=== PATIENT | female | born 1990 | race Caucasian/White ===

== ENCOUNTER → 2021-09-07 | Outpatient (CLI) | payer OTHER ==
--- NOTE | 2021-09-07 15:28 | US ---
EXAMINATION TYPE: Transabdominal DATE OF EXAM: 09/07/2021 3:10 PM COMPARISON: NONE CLINICAL HISTORY: Z36.89 CONFIRM [id number] AGE. EXAM PERFORMED: Transabdominal (TA) EXAM MEASUREMENTS: GESTATIONAL AGE / DATING Physician Established: (11 weeks/5 days) EDC: 03/24/2022 Dates by LMP: (11 weeks/5 days) EDC: 03/24/2022 Dates by First Scan: This is 1st scan Dates by Current Scan for: (11 weeks/4 days) EDC: 03/25/2022 MATERNAL ANATOMY Uterus: 12.9 x 7.6 x 8.1cm Right Ovary: 3.3 x 1.8 x 2.4cm, Left Ovary: 4.0 x 2.0 x 1.9cm Post CDS / Adnexa: right adnexa: 5.1 x 4.3 x 5.0cm cystic area adjacent to right ovary, possible ovar regulo cyst Presence of free fluid: no Presence of corpus luteal cyst: not seen Presence of subchorionic bleed: no GESTATION / SURVEY CRL: 4.8cm (11 weeks/4 days) Yolk Sac (normal less than 6mm): not seen Heart Rate: 165 bpm Rhythm: Normal IUP: Viable IUP Date of LMP: 06/17/2021 IMPRESSION: Single viable intrauterine . Right adnexal cyst.
== END | disposition home or self-care (01) ==
LOC: RADUSWWP 14:48
PROVIDERS: ATTEND Obstetrics & Gynecology
DX: O34.81 Maternal care for other abnormalities of pelvic organs, first trimester (principal); Z3A.11 11 weeks gestation of pregnancy
CPT/HCPCS: 76801

== ENCOUNTER → 2021-11-01 | Outpatient (CLI) | payer OTHER ==
--- NOTE | 2021-11-01 16:23 | US ---
EXAMINATION TYPE: US OB anatomy transabd DATE OF EXAM: 11/01/2021 COMPARISON: US September 07, 2021 HISTORY: O36.62X0 LARGE FOR DATES Large for dates. Hx 1 miscarriage, 1 . . No pain or bl eeding. TECHNIQUE: Transabdominal (TA) EXAM MEASUREMENTS: GESTATIONAL AGE / DATING Physician Established: (19 weeks/4 days) EDC: 03/24/2022 Dates by LMP: (19 weeks/4 days) EDC: 03/24/2022 Dates by First Scan: (19 weeks/3 days) EDC: 03/25/2022 Dates by Current Scan for: (19 weeks/4 days) EDC: 03/24/2022 SURVEY IUP: Single PLACENTA: Posterior-Fundal PREVIA: No previa MILES: 16.4 cm Normal CERVICAL LENGTH (transabdominal: norm > 3.0cm): 4.6 cm BIOMETRY PRESENTATION: Variable LIE: Transverse lie with head maternal Right BPD: 4.41 cm 19 weeks / 3 days HC: 16.91 cm 19 weeks / 4 days AC: 14.06 cm 19 weeks / 4 days FL: 3.11 cm 19 weeks / 5 days ESTIMATED WEIGHT IN GRAMS: 298 grams ESTIMATED WEIGHT IN LBS/OZ: 0 lbs. 11 oz. WEIGHT PERCENTAGE BASED ON ESTABLISHED DATE: 43 % HC/AC: 1.20 Normal FL/AC: 22% HEART RATE: 134 bpm RHYTHM: Normal ANATOMY SEEN (within normal limits): * Lateral Vent (< 1 cm) 0.72 cm * Cisterna Magna (< 1.1 cm) 0.41 * Nuchal Fold (< 0.6 cm) 0.37 cm. * Cerebellum (varies with age) 1.90 cm Choroid Plexus (bilateral) Midline Falx Cavus Septi Pellucidi Four Chamber Heart Outflow tracts: LVOT/RVOT Stomach Situs Nose / Lips Diaphragm Kidneys (bilateral) Bladder Cord Insert Three Vessel Cord Longitudinal Spine Transverse Spine Arms (bilateral) Legs (bilateral) Female gender imaged. ANATOMY SEEN (does not appear within normal limits): Appearance of cystic area within the right choroid: 0.5 cm. Incidental finding as seen on last ultrasound: Anechoic area seen in the right adnexa that appears to be adjacent to the right ovary: 5.2 x 5.1 x 3.8 cm. Right ovary measures: 2.4 x 3.0 x 1.3 cm. Single live intrauterine gestation is redemonstrated. No placenta previa. Measured amniotic fluid ind ex within normal limits. biometry measurements congruent and within normal limits. A variable p resentation to fetus currently seen. No cervical thinning. Detailed anatomical survey shows no suspic ious abnormality during real-time scanning. Still images saved show no obvious abnormality. Persisten t 5.0 cm right pelvic paraovarian thin-walled cyst noted unchanged in appearance from prior ultrasoun d IMPRESSION: As above.
== END | disposition home or self-care (01) ==
LOC: RADUSWWP 12:45
PROVIDERS: ATTEND Obstetrics & Gynecology
DX: O36.62X0 Maternal care for excessive fetal growth, second trimester, not applicable or unspecified (principal); Z3A.00 Weeks of gestation of pregnancy not specified
CPT/HCPCS: 76811

== ENCOUNTER → 2021-12-03 | Outpatient (CLI) | payer OTHER ==
--- NOTE | 2021-12-03 16:58 | US ---
EXAMINATION TYPE: US OB >= 14 wk fetus DATE OF EXAM: 12/03/2021 COMPARISON: 11/01/2021 CLINICAL HISTORY: 31-year-old female Z34.82 ENCOUNTER FOR SUPRVSN OF NORMAL PREGN G93.0 TECHNIQUE: Multiple transabdominal sonographic images of the pelvis are obtained. FINDINGS: GESTATIONAL AGE / DATING Physician Established: (24 weeks/1 days) EDC: 03/24/2022 Dates by LMP: (24 weeks/1 days) EDC: 03/24/2022 Dates by First Scan: (24 weeks/0 days) EDC: 03/25/2022 Dates by Current Scan: (24 weeks/1 days) (normal growth compared to 11/01/2021) EDC: 03/24/2022 SURVEY IUP: Single PLACENTA: Posterior PREVIA: No Previa MILES: 12.7 cm Normal CERVICAL LENGTH (transabdominal: norm > 3.0cm): 4.4 cm BIOMETRY PRESENTATION: Vertex LIE: Longitudinal BPD: 6.0 cm 24 weeks / 4 days HC: 22.2 cm 24 weeks / 2 days AC: 18.0 cm 23 weeks / 0 days FL: 4.4 cm 24 weeks / 4 days ESTIMATED WEIGHT IN GRAMS: 618 grams ESTIMATED WEIGHT IN LBS/OZ: 1 lbs. 6 oz. WEIGHT PERCENTAGE BASED ON ESTABLISHED DATES: 22% (versus 43%, previously) HC/AC: 1.23 Abnormal FL/AC: 24% Normal HEART RATE: 138 bpm RHYTHM: Normal Choroid plexus cyst seen on previous ultrasound not seen on today's exam 4.8 x 4.0 x 4.6cm cystic area seen right adnexa - seen on previous exam, measured at 5.2 x 5.1 x 3. 8 cm, previously. This seems be adjacent to, abutting the right ovary. IMPRESSION: 1. Single live intrauterine with established gestational age of 24 weeks 1 day. Current ult rasound biometry is exactly concordant. EFW 22nd percentile for weight. 2. Redemonstration of a cystic right adnexal lesion. The 4.8 cm simple cyst appears to abut the right ovary, possible paraovarian cyst.
== END | disposition home or self-care (01) ==
LOC: RADUSWWP 12:13
PROVIDERS: ATTEND Obstetrics & Gynecology
DX: Z34.82 Encounter for supervision of other normal pregnancy, second trimester (principal); Z3A.24 24 weeks gestation of pregnancy
CPT/HCPCS: 76805

== ENCOUNTER 2021-12-12 14:38 | Outpatient (CLI) | payer OTHER ==
[2021-12-12 15:44] LABS: Amorphous Sediment,Urine Occasional /hpf; Appearance,Urine Clear (Clear); Bacteria,Urine Many /hpf; Bilirubin,Urine Negative (Negative); Blood,Urine Negative (Negative); Color,Urine Colorless; Glucose,Urine (UA) Negative (Negative); Ketones,Urine Negative (Negative); Leukocyte Esterase,Urine Moderate (Negative); Mucus,Urine Rare /hpf; Nitrite,Urine Negative (Negative); PH, Urine 7.5 (5.0-8.0); Protein,Urine Negative (Negative); RBC,Urine 2 /hpf (0-5); Specific Gravity,Urine 1.006 (1.001-1.035); Squamous Epithelial Cell,Urine 2 /hpf (0-4); Urobilinogen,Urine <2.0 mg/dL (<2.0); WBC,Urine 25 /hpf (0-5)
[2021-12-12] MEDS ORDERED: CEPHALEXIN 500 MG CAP PO STA (15:53)
[2021-12-12 16:34] VITALS: BP 107/65; PULSE 80; RESP 16; TEMP 97.4
--- NOTE | 2021-12-20 11:26 | P.MSEPDOC ---
Presenting Problems - Arrival Data Date of Arrival on Unit: 12/12/21 Time of Arrival on Unit: 14:38 Mode of Transport: Wheelchair - Complaint OB-Reason for Admission/Chief Complaint: Pain Comment: lower back and abd pain, rates 7 Medical History - Information : 3 Para: 0 Term: 0 : 0 Abortions: Spontaneous or Elective: 2 Number of Living Children: 0 - Gestational Age Gestational Age by NAZARIO (wks/days): 25 Weeks and 3 Days Review of Systems - Review of Systems Constitutional: No problems Breast: No problems ENT: No problems Cardiovascular: No problems Respiratory: No problems Gastrointestinal: No problems Genitourinary: No problems Musculoskeletal: No problems Neurological: No problems Skin: No problems Vital Signs - Temperature Temperature: 97.4 F Temperature Source: Temporal Artery Scan - Pulse Right Sitting Pulse Rate: 80 Pulse Assessment Method: Automatic Cuff - Respirations Respiratory Rate: 16 Oxygen Delivery Method: Room Air - Blood Pressure Right Arm Blood Pressure: 107/65 Blood Pressure Mean: 79 Blood Pressure Source: Automatic Cuff Medical Screen Scoring - Assessment - Baby A Baseline FHR: 145 Heart Rate - NICHD Category: Category I (Normal) Physician Notification - Physician Notified Physician Notified Date: 12/12/21 Physician Notified Time: 15:57 Physician: Ángel Mooney New Order Received: Yes (d/c home) Maternal Triage Index - Non-Urgent/Priority 4 Non-Urgent Priority 4: Yes Criteria Met for Priority 4: reassuring fht, no contractions, uti Disposition - Disposition OB Disposition: Discharge to home Discharge Date: 12/12/21 Discharge Time: 16:12 I agree with the RN Medical Screening Exam: Yes Case reviewed; plan agreed upon as documented in EMR&OBIX.: Yes Diagnosis: LOW BACK PAIN, UNSPECIFIED
== END 2021-12-12 16:12 | disposition home or self-care (01) ==
LOC: FBPOP 14:38
PROVIDERS: ATTEND Obstetrics & Gynecology
DX: O99.891 Other specified diseases and conditions complicating pregnancy (principal); M54.50 Low back pain, unspecified; Z3A.25 25 weeks gestation of pregnancy
CPT/HCPCS: 59025; 81001; 87086; 99213

== ENCOUNTER 2022-02-14 20:18 | Outpatient (CLI) | payer OTHER ==
[2022-02-14 21:43] VITALS: BP 112/74; PULSE 93; RESP 16; TEMP 98.4
--- NOTE | 2022-02-15 06:52 | P.MSEPDOC ---
Presenting Problems - Arrival Data Date of Arrival on Unit: 02/14/22 Time of Arrival on Unit: 20:18 Mode of Transport: Ambulatory - Complaint OB-Reason for Admission/Chief Complaint: Decreased Movement Medical History - Information : 3 Para: 0 Term: 0 : 0 Abortions: Spontaneous or Elective: 2 Number of Living Children: 0 - Gestational Age Gestational Age by NAZARIO (wks/days): 34 Weeks and 4 Days Review of Systems - Review of Systems Constitutional: No problems Breast: No problems ENT: No problems Cardiovascular: No problems Respiratory: No problems Gastrointestinal: No problems Genitourinary: No problems Musculoskeletal: No problems Neurological: No problems Skin: No problems Vital Signs - Temperature Temperature: 98.4 F Temperature Source: Temporal Artery Scan - Pulse Brachial Pulse Rate: 93 Pulse Assessment Method: Automatic Cuff - Respirations Respiratory Rate: 16 Oxygen Delivery Method: Room Air - Blood Pressure Right Arm Blood Pressure: 112/74 Blood Pressure Mean: 86 Blood Pressure Source: Automatic Cuff Medical Screen Scoring - Uterine Contractions Frequency From (mins): 0 - Assessment - Baby A Baseline FHR: 125 Heart Rate - NICHD Category: Category I (Normal) NST: Reactive Physician Notification - Physician Notified Physician Notified Date: 02/14/22 Physician Notified Time: 21:00 Physician: Lisa Desai Order Received: Yes Maternal Triage Index - Prompt/Priority 3 Prompt Priority 3: Yes Criteria Met for Priority 3: 34 4/7 Decreased movment, fhts Category 1, movement felt Disposition - Disposition OB Disposition: LDRP Suite, Discharge to home, Written follow up instructions reviewed Discharge Date: 02/14/22 Discharge Time: 21:17 I agree with the RN Medical Screening Exam: Yes Physician's MSE Comment: Patient instructed to come to the office 2 times a week for NSTs due to decreased movement. Case reviewed; plan agreed upon as documented in EMR&OBIX.: Yes Diagnosis: DECREASED MOVEMENTS, THIRD TRIMESTER, UNSP
== END 2022-02-14 21:17 ==
LOC: FBPOP 20:18
PROVIDERS: ATTEND Obstetrics & Gynecology
DX: O26.893 Other specified pregnancy related conditions, third trimester (principal); Z3A.34 34 weeks gestation of pregnancy; O36.8130 Decreased fetal movements, third trimester, not applicable or unspecified
CPT/HCPCS: 59025; 99213

== ENCOUNTER 2022-02-17 08:31 | Outpatient (CLI) | payer OTHER ==
[2022-02-17] MEDS ORDERED: LACTATED RINGERS 1,000 ML IV ONE (09:15)
[2022-02-17 09:43] LABS: Basophils % (A) 0 %; Eosinophils # (A) 0.1 k/uL (0-0.7); Eosinophils % (A) 1 %; HCT 35.1 % (34.0-46.0); HGB 11.7 gm/dL (11.4-16.0); Hypochromasia Slight; Lymphocytes # (A) 1.4 k/uL (1.0-4.8); Lymphocytes % (A) 14 %; MCH 29.8 pg (25.0-35.0); MCHC 33.5 g/dL (31.0-37.0); MCV 88.9 fL (80.0-100.0); Mean Platelet Volume 10.7; Monocytes # (A) 0.2 k/uL (0-1.0); Monocytes % (A) 2 %; Neutrophils # (A) 8.4 k/uL (1.3-7.7); Neutrophils % (A) 82 %; Platelet Count 216 k/uL (150-450); RBC 3.94 m/uL (3.80-5.40); RDW 13.5 % (11.5-15.5); WBC 10.3 k/uL (3.8-10.6)
[2022-02-17 10:27] LABS: Appearance,Urine Cloudy (Clear); Bacteria,Urine Rare /hpf; Bilirubin,Urine Negative (Negative); Blood,Urine Negative (Negative); Color,Urine Yellow; Glucose,Urine (UA) Negative (Negative); Ketones,Urine Negative (Negative); Leukocyte Esterase,Urine Trace (Negative); Mucus,Urine Many /hpf; Nitrite,Urine Negative (Negative); Protein,Urine 1+ (Negative); RBC,Urine <1 /hpf (0-5); Specific Gravity,Urine 1.027 (1.001-1.035); Squamous Epithelial Cell,Urine 2 /hpf (0-4); WBC,Urine 2 /hpf (0-5)
[2022-02-17 11:13] LABS: ALT 11 U/L (4-34); AST 20 U/L (14-36); African American GFR (CKD) >90 (>60 ml/min/1.73 sqM); Albumin 3.2 g/dL (3.5-5.0); Alkaline Phosphatase 111 U/L (38-126); Anion Gap 6 mmol/L; Blood Urea Nitrogen 9 mg/dL (7-17); Calcium 8.6 mg/dL (8.4-10.2); Carbon Dioxide 20 mmol/L (22-30); Chloride 107 mmol/L (98-107); Glucose 91 mg/dL (74-99); Non-African American GFR(CKD) >90 (>60 ml/min/1.73 sqM); Potassium 4.4 mmol/L (3.5-5.1); Sodium 133 mmol/L (137-145); Total Bilirubin 0.2 mg/dL (0.2-1.3); Total Protein 6.1 g/dL (6.3-8.2)
[2022-02-17 11:52] VITALS: BP 117/63; PULSE 82; RESP 18; TEMP 98
--- NOTE | 2022-02-18 07:46 | P.MSEPDOC ---
Presenting Problems - Arrival Data Date of Arrival on Unit: 02/17/22 Time of Arrival on Unit: 08:25 Mode of Transport: Ambulatory - Complaint OB-Reason for Admission/Chief Complaint: Acute Nausea/Vomiting, Pain Comment: LRQ pain, active vomiting Medical History - Information : 3 Para: 0 Number of Living Children: 0 - Gestational Age Gestational Age by NAZARIO (wks/days): 35 Weeks and 0 Days Review of Systems - Review of Systems Constitutional: No problems Breast: No problems ENT: No problems Cardiovascular: No problems Respiratory: No problems Gastrointestinal: No problems Genitourinary: No problems Musculoskeletal: No problems Neurological: No problems Skin: No problems Vital Signs - Temperature Temperature: 98.0 F Temperature Source: Axillary - Pulse Right Sitting Brachial Pulse Rate: 82 Pulse Assessment Method: Automatic Cuff - Respirations Respiratory Rate: 18 Oxygen Delivery Method: Room Air O2 Sat by Pulse Oximetry: 100 - Blood Pressure Right Arm Sitting Blood Pressure: 117/63 Blood Pressure Mean: 81 Blood Pressure Source: Automatic Cuff Medical Screen Scoring - Cervical Exam Dilation (cm): 0 Effacement (%): 0 Station: -2 Membranes: Intact - Uterine Contractions Frequency From (mins): 0 Frequency To (mins): 0 Duration From (seconds): 0 Duration To (seconds): 0 Intensity: Absent Resting: Soft to palpation - Assessment - Baby A Baseline FHR: 135 Heart Rate - NICHD Category: Category I (Normal) NST: Reactive Physician Notification - Physician Notified Physician Notified Date: 02/17/22 Physician Notified Time: 11:25 Physician: Ángel Mooney New Order Received: Yes - Notification Comment Comment: discharge Maternal Triage Index - Maternal Triage Index Presenting for scheduled procedure w/no complaint: No - Stat/Priority 1 Stat Priority 1: No - Urgent/Priority 2 Urgent Priority 2: No - Prompt/Priority 3 Prompt Priority 3: No - Non-Urgent/Priority 4 Non-Urgent Priority 4: Yes Criteria Met for Priority 4: vomiting, pain Disposition - Disposition OB Disposition: Discharge to home Discharge Date: 02/17/22 Discharge Time: 11:35 I agree with the RN Medical Screening Exam: Yes Case reviewed; plan agreed upon as documented in EMR&OBIX.: Yes Diagnosis: VOMITING OF , UNSPECIFIED (Patient presents to labor and delivery with complaints of chronic right lower quadrant pain. Her review of for history per Dr. Walter shows long-standing pelvic pain and right- sided discomfort. She does have a history of a right ovarian cyst and kidney stones. Patient presented because her pain was persistent and now accompanied with some nausea and vomiting. I did a complete evaluation including CBC which was normal. Patient is given IV hydration the pain markedly improved. Patient's discharge home follow up with her ultrasound tomorrow. Follow-up with Dr. Walter this week. Patient is given indications to return.)
== END 2022-02-17 11:35 | disposition home or self-care (01) ==
LOC: FBPOP 08:31
PROVIDERS: ATTEND Obstetrics & Gynecology
DX: O26.893 Other specified pregnancy related conditions, third trimester (principal); R11.2 Nausea with vomiting, unspecified; Z3A.35 35 weeks gestation of pregnancy
CPT/HCPCS: 59025; 80053; 81001; 85025; 96360; 96361; 99214

== ENCOUNTER 2022-02-18 15:36 | Outpatient (CLI) | payer OTHER ==
[2022-02-18] MEDS ORDERED: LACTATED RINGERS 1,000 ML IV SCH (16:00)
[2022-02-18 17:34] VITALS: BP 122/74; PULSE 94; RESP 16; TEMP 97.9
--- NOTE | 2022-03-12 20:58 | P.MSEPDOC ---
Presenting Problems - Arrival Data Date of Arrival on Unit: 02/18/22 Time of Arrival on Unit: 15:36 Mode of Transport: Ambulatory - Complaint OB-Reason for Admission/Chief Complaint: Acute Nausea/Vomiting, Pain Comment: Pt states vomiting since Friday morning, not constant, no nausea, just will vomit after eating/drinking. Pt states R ovarian cyst causing pain. Pt was in for scheduled ultrasound and came to triage to receive fluids. Had IV fluids and UA yesterday. Medical History - Information : 2 Para: 0 Abortions: Spontaneous or Elective: 1 - Gestational Age Gestational Age by NAZARIO (wks/days): 35 Weeks and 1 Days Review of Systems - Review of Systems Constitutional: No problems Breast: No problems ENT: No problems Cardiovascular: No problems Respiratory: No problems Gastrointestinal: No problems Genitourinary: No problems Musculoskeletal: No problems Neurological: No problems Skin: No problems Vital Signs - Temperature Temperature: 97.9 F Temperature Source: Temporal Artery Scan - Pulse Right Sitting Brachial Pulse Rate: 94 Pulse Assessment Method: Automatic Cuff - Respirations Respiratory Rate: 16 Oxygen Delivery Method: Room Air - Blood Pressure Right Arm Sitting Blood Pressure: 122/74 Blood Pressure Mean: 90 Blood Pressure Source: Automatic Cuff Medical Screen Scoring - Assessment - Baby A Baseline FHR: 150 Heart Rate - NICHD Category: Category I (Normal) NST: Reactive Physician Notification - Physician Notified Physician Notified Date: 02/18/22 Physician Notified Time: 16:00 Physician: Angela Walter New Order Received: Yes - Notification Comment Comment: Dr. Walter present on unit, gave orders for 1L LR and swab for COVID/FLU. Aware of pts ovarian cyst, have been watching it during . 1720-Cld Dr. Walter, reviewed results of swab, all negative. Cat 1 FHT, pt continues to complain about RLQ pain and vomiting s\nausea. Advsd to spk c\pt re : abdomen support belt and to follow up as scheduled Friday Maternal Triage Index - Maternal Triage Index Presenting for scheduled procedure w/no complaint: No - Stat/Priority 1 Stat Priority 1: No - Urgent/Priority 2 Urgent Priority 2: No - Prompt/Priority 3 Prompt Priority 3: No - Non-Urgent/Priority 4 Non-Urgent Priority 4: Yes Criteria Met for Priority 4: Vomiting Disposition - Disposition OB Disposition: Discharge to home, Written follow up instructions reviewed Discharge Date: 02/18/22 Discharge Time: 17:34 I agree with the RN Medical Screening Exam: Yes Case reviewed; plan agreed upon as documented in EMR&OBIX.: Yes Diagnosis: PAIN, UNSPECIFIED
== END 2022-02-18 17:35 | disposition home or self-care (01) ==
LOC: FBPOP 15:36
PROVIDERS: ATTEND Obstetrics & Gynecology
DX: O26.893 Other specified pregnancy related conditions, third trimester (principal); Z3A.35 35 weeks gestation of pregnancy; R52 Pain, unspecified
CPT/HCPCS: 59025; 87636; 96360; 96361; 99214

== ENCOUNTER → 2022-02-18 | Outpatient (CLI) | payer OTHER ==
--- NOTE | 2022-02-18 15:46 | US ---
EXAMINATION TYPE: US OB >= 14 wk fetus DATE OF EXAM: 02/18/2022 COMPARISON: None CLINICAL HISTORY: O36.63X0 growth, third trimester, growth TECHNIQUE: OBTA GESTATIONAL AGE / DATING Physician Established: (35 weeks/1 days) EDC: 03/24/2022 Dates by LMP: (35 weeks/1 days) EDC: 03/24/2022 Dates by First Scan: (35 weeks/0 days) EDC: 03/25/2022 Dates by Current Scan: (35 weeks/2 days) EDC: SURVEY IUP: Single PLACENTA: Posterior-fundal PREVIA: No Previa MILES: 21.9 cm Normal CERVICAL LENGTH (transabdominal: norm > 3.0cm): 4.0 cm BIOMETRY PRESENTATION: Vertex LIE: Longitudinal BPD: 9.0 cm 36 weeks / 2 days HC: 32.2 cm 36 weeks / 2 days AC: 30.9 cm 34 weeks / 6 days FL: 6.9 cm 35 weeks / 3 days ESTIMATED WEIGHT IN GRAMS: 2643 grams ESTIMATED WEIGHT IN LBS/OZ: 5 lbs. 13 oz. WEIGHT PERCENTAGE BASED ON ESTABLISHED DATES: 51% HC/AC: 1.0 Normal FL/AC: 22.3 Normal HEART RATE: 152 bpm RHYTHM: Normal IMPRESSION: Single viable intrauterine .
== END | disposition home or self-care (01) ==
LOC: RADUSWWP 14:53
PROVIDERS: ATTEND Obstetrics & Gynecology
DX: O36.63X0 Maternal care for excessive fetal growth, third trimester, not applicable or unspecified (principal); Z3A.35 35 weeks gestation of pregnancy
CPT/HCPCS: 76805

== ENCOUNTER 2022-02-21 06:15 | Emergency (ER) | payer OTHER ==
[2022-02-21] MEDS ORDERED: SODIUM CHLORIDE 0.9% 500 ML 500 ML IV STA (06:35)
--- NOTE | 2022-02-21 06:46 | ED ---
Abdominal Pain HPI - General Stated Complaint: Abd pain, 35 wks preg, sent by OB Time Seen by Provider: 02/21/22 06:30 Source: patient, family, RN notes reviewed, old records reviewed - History of Present Illness Initial Comments: This is a well-appearing 31-year-old female that presents to the emergency room ambulatory with her complaining of right lower quadrant pain for a week. She did see her MACHINE STRIPPER yesterday and had a pelvic exam. She states that she was told she does have a right ovarian cyst and was prescribed oxycodone. Patient states she has taken 2 pills with no relief. Patient states Dr. Walter was concerned for appendicitis and sent her to ER for a CT scan. Patient states she did have a bloody mucoid discharge this morning and called Dr. Walter and was told likely related to the pelvic exam yesterday. Denies any contractions. Denies any fevers. MD Complaint: abdominal pain -: week(s) (1) Location: RLQ Severity scale (1-10): 8 Consistency: constant Improves With: nothing Associated Symptoms: denies other symptoms Treatments Prior to Arrival: prescription analgesics (Oxycodone) - Related Data Patient : Yes Number of weeks : 35 Home Medications Medication Instructions Recorded Confirmed Vit No.179/Iron/Folic 1 tab PO DAILY 12/12/21 02/14/22 [ Tablet] Allergies Allergy/AdvReac Type Severity Reaction Status Date / Time No Known Allergies Allergy Verified 02/18/22 15:49 Review of Systems ROS Statement: Those systems with pertinent positive or pertinent negative responses have been documented in the HPI. ROS Other: All systems not noted in ROS Statement are negative. Past Medical History History of Any Multi-Drug Resistant Organisms: None Reported Smoking Status: Never smoker General Exam Limitations: no limitations General appearance: alert, in no apparent distress Head exam: Present: atraumatic Eye exam: Present: normal appearance. Absent: scleral icterus, conjunctival injection, periorbital swelling, periorbital tenderness ENT exam: Present: mucous membranes moist Neck exam: Present: full ROM. Absent: meningismus Respiratory exam: Absent: respiratory distress, accessory muscle use Cardiovascular Exam: Present: regular rate GI/Abdominal exam: Present: soft. Absent: tenderness, guarding, rebound, rigid Extremities exam: Present: full ROM, normal capillary refill. Absent: tenderness Neurological exam: Present: alert, oriented X3, normal gait Psychiatric exam: Present: normal affect, normal mood Skin exam: Present: warm, dry, normal color. Absent: cyanosis, diaphoretic, pallor Course Vital Signs 02/21/22 02/21/22 06:54 08:04 Temperature 97.7 F Pulse Rate 88 Respiratory 20 Rate Blood Pressure 124/83 O2 Sat by Pulse 98 Oximetry - Reevaluation(s) Reevaluation #1: I did speak with Dr. Walter who recommended 12 mg of Celestone IM. Patient can take 10 mg of oxycodone as previously prescribed every 6 hours as needed for pain. Follow-up in the office tomorrow morning as scheduled. 02/21/22 09:35 Time: 09:35 Medical Decision Making - Medical Decision Making Patient presents with right lower quadrant pain for one week. Denies any fevers. States that she did see her MACHINE STRIPPER yesterday and had pelvic exam was told this could be appendicitis and to come to the emergency room for a CT scan today. Patient states that she did have a mucoid bloody discharge this morning, states her MACHINE STRIPPER told her it was likely from the pelvic exam yesterday. No contractions.. Patient was seen by Dr. Mooney on 02/17 for complaints of chronic right lower q uadrant pain. It was documented that she has a history of a right ovarian cyst and kidney stones. Her pain was persistent accompanied with nausea and vomiting. CBC was normal at that time. heart tones 135. Patient is a . Today Ultrasound performed to rule out appendicitis. Radiologist impression unable to identify the appendix. No inflammatory changes or free fluid present. Known right ovarian cyst measuring 5.1 cm compared to 5.7 cm on 02/18/2022. White blood cell count on 02/17 was 10.3 and today is 10.0. Lactic acid is 0.8. Urinalysis cloudy with moderate leukocyte esterase and few bacteria. I did speak with Dr. Walter who recommended not treating patient has she has no symptoms and urine culture last week was negative. Patient denies fevers. On physical exam she has minimal right lower quadrant tenderness. Pain has been ongoing for over a week. There is no trending elevation in white count. I have a low suspicion that this is appendicitis. This is likely pain related to the right ovarian cyst measuring 5 cm and possible compression from the baby. I did discuss findings with Dr. Walter who recommended patient be discharged home to follow-up in the office tomorrow. Directed to take up to 10 mg of oxycodone that she previously prescribed every 6 hours as needed for pain. She was given Celestone [address] Walter as she intends to deliver the baby early. Patient states that she is very tired and has not been able to sleep. I did recommend Benadryl. She was directed to follow up with her MACHINE STRIPPER tomorrow as scheduled. Patient was agreeable to this plan care. Case discussed with Dr. Gardner. - Lab Data Result diagrams: 02/21/22 06:50 02/21/22 06:50 Lab Results 02/21/22 02/21/22 02/21/22 Range/Units 06:50 06:50 06:50 WBC 10.0 (3.8-10.6) k/uL RBC 3.85 (3.80-5.40) m/uL Hgb 11.7 (11.4-16.0) gm/dL Hct 33.6 L (34.0-46.0) % MCV 87.3 (80.0-100.0) fL MCH 30.4 (25.0-35.0) pg MCHC 34.8 (31.0-37.0) g/dL RDW 13.3 (11.5-15.5) % Plt Count 201 (150-450) k/uL MPV 9.9 Neutrophils % 80 % Lymphocytes % 15 % Monocytes % 4 % Eosinophils % 1 % Basophils % 0 % Neutrophils # 7.9 H (1.3-7.7) k/uL Lymphocytes # 1.5 (1.0-4.8) k/uL Monocytes # 0.4 (0-1.0) k/uL Eosinophils # 0.1 (0-0.7) k/uL Basophils # 0.0 (0-0.2) k/uL Sodium 135 L (137-145) mmol/L Potassium 3.9 (3.5-5.1) mmol/L Chloride 108 H (98-107) mmol/L Carbon Dioxide 18 L (22-30) mmol/L Anion Gap 9 mmol/L BUN 2 L (7-17) mg/dL Creatinine 0.52 (0.52-1.04) mg/dL Est GFR (CKD-EPI)AfAm >90 (>60 ml/min/1.73 sqM) Est GFR (CKD-EPI)NonAf >90 (>60 ml/min/1.73 sqM) Glucose 91 (74-99) mg/dL Plasma Lactic Acid Rusty 0.8 (0.7-2.0) mmol/L Calcium 8.1 L (8.4-10.2) mg/dL Total Bilirubin 0.4 (0.2-1.3) mg/dL AST 34 (14-36) U/L ALT 16 (4-34) U/L Alkaline Phosphatase 120 (38-126) U/L Lactate Dehydrogenase 500 (313-618) U/L Total Protein 6.1 L (6.3-8.2) g/dL Albumin 3.2 L (3.5-5.0) g/dL Urine Color Urine Appearance (Clear) Urine pH (5.0-8.0) Ur Specific [place] (1.001-1.035) Urine Protein (Negative) Urine Glucose (UA) (Negative) Urine Ketones (Negative) Urine Blood (Negative) Urine Nitrite (Negative) Urine Bilirubin (Negative) Urine Urobilinogen (<2.0) mg/dL Ur Leukocyte Esterase (Negative) Urine RBC (0-5) /hpf Urine WBC (0-5) /hpf Ur Squamous Epith Cells (0-4) /hpf Urine Bacteria (None) /hpf Urine Mucus (None) /hpf 02/21/22 Range/Units 08:12 WBC (3.8-10.6) k/uL RBC (3.80-5.40) m/uL Hgb (11.4-16.0) gm/dL Hct (34.0-46.0) % MCV (80.0-100.0) fL MCH (25.0-35.0) pg MCHC (31.0-37.0) g/dL RDW (11.5-15.5) % Plt Count (150-450) k/uL MPV Neutrophils % % Lymphocytes % % Monocytes % % Eosinophils % % Basophils % % Neutrophils # (1.3-7.7) k/uL Lymphocytes # (1.0-4.8) k/uL Monocytes # (0-1.0) k/uL Eosinophils # (0-0.7) k/uL Basophils # (0-0.2) k/uL Sodium (137-145) mmol/L Potassium (3.5-5.1) mmol/L Chloride (98-107) mmol/L Carbon Dioxide (22-30) mmol/L Anion Gap mmol/L BUN (7-17) mg/dL Creatinine (0.52-1.04) mg/dL Est GFR (CKD-EPI)AfAm (>60 ml/min/1.73 sqM) Est GFR (CKD-EPI)NonAf (>60 ml/min/1.73 sqM) Glucose (74-99) mg/dL Plasma Lactic Acid Rusty (0.7-2.0) mmol/L Calcium (8.4-10.2) mg/dL Total Bilirubin (0.2-1.3) mg/dL AST (14-36) U/L ALT (4-34) U/L Alkaline Phosphatase (38-126) U/L Lactate Dehydrogenase (313-618) U/L Total Protein (6.3-8.2) g/dL Albumin (3.5-5.0) g/dL Urine Color Yellow Urine Appearance Cloudy H (Clear) Urine pH 6.5 (5.0-8.0) Ur Specific [place] 1.007 (1.001-1.035) Urine Protein Negative (Negative) Urine Glucose (UA) Negative (Negative) Urine Ketones Negative (Negative) Urine Blood Small H (Negative) Urine Nitrite Negative (Negative) Urine Bilirubin Negative (Negative) Urine Urobilinogen <2.0 (<2.0) mg/dL Ur Leukocyte Esterase Moderate H (Negative) Urine RBC 1 (0-5) /hpf Urine WBC 5 (0-5) /hpf Ur Squamous Epith Cells 5 H (0-4) /hpf Urine Bacteria Few H (None) /hpf Urine Mucus Rare H (None) /hpf Disposition Clinical Impression: Ovarian cyst Disposition: HOME SELF-CARE Condition: Good Instructions (If sedation given, give patient instructions): (ED), Ovarian Cyst (ED) Additional Instructions: Increase your fluid intake. You can take 10 mg of oxycodone as prescribed by Dr. Walter every 6 hours as needed for pain. Follow-up with your MACHINE STRIPPER tomorrow as scheduled. Return to the emergency room with any new or concerning symptoms. Is patient prescribed a controlled substance at d/c from ED?: No Referrals: Rashmi Gardner DO [Primary Care Provider] - 1-2 days Angela Walter DO [Family Provider] - 1-2 days Time of Disposition: 09:38
[2022-02-21 06:55] VITALS: BP 124/83; PULSE 88; RESP 20
[2022-02-21 06:58] LABS: Basophils % (A) 0 %; Eosinophils # (A) 0.1 k/uL (0-0.7); Eosinophils % (A) 1 %; HCT 33.6 % (34.0-46.0); HGB 11.7 gm/dL (11.4-16.0); Lymphocytes # (A) 1.5 k/uL (1.0-4.8); Lymphocytes % (A) 15 %; MCH 30.4 pg (25.0-35.0); MCHC 34.8 g/dL (31.0-37.0); MCV 87.3 fL (80.0-100.0); Mean Platelet Volume 9.9; Monocytes # (A) 0.4 k/uL (0-1.0); Monocytes % (A) 4 %; Neutrophils # (A) 7.9 k/uL (1.3-7.7); Neutrophils % (A) 80 %; Platelet Count 201 k/uL (150-450); RBC 3.85 m/uL (3.80-5.40); RDW 13.3 % (11.5-15.5)
[2022-02-21] MEDS ORDERED: MORPHINE SULFATE 4 MG/ML SYRINGE IVP STA (07:05)
[2022-02-21 07:17] LABS: ALT 16 U/L (4-34); AST 34 U/L (14-36); African American GFR (CKD) >90 (>60 ml/min/1.73 sqM); Albumin 3.2 g/dL (3.5-5.0); Alkaline Phosphatase 120 U/L (38-126); Anion Gap 9 mmol/L; Blood Urea Nitrogen 2 mg/dL (7-17); Calcium 8.1 mg/dL (8.4-10.2); Carbon Dioxide 18 mmol/L (22-30); Chloride 108 mmol/L (98-107); Glucose 91 mg/dL (74-99); LDH 500 U/L (313-618); Non-African American GFR(CKD) >90 (>60 ml/min/1.73 sqM); Potassium 3.9 mmol/L (3.5-5.1); Sodium 135 mmol/L (137-145); Total Bilirubin 0.4 mg/dL (0.2-1.3); Total Protein 6.1 g/dL (6.3-8.2)
--- NOTE | 2022-02-21 08:05 | US ---
EXAMINATION TYPE: US abdomen APPY DATE OF EXAM: 02/21/2022 COMPARISON: 02/18/2022, 12/03/2021. CLINICAL HISTORY: 31-year-old female RLQ r/o appy , 35 wks . Right side pain TECHNIQUE: Multiple sonographic images of the right lower quadrant were obtained with graded compress ion. FINDINGS: APPENDIX Is the appendix seen in its entirety from the proximal cecum to distal end: RLQ scanned. Appendix n ot visualized at time of scan Is there inflammatory changes or free fluid present: no STABILIZING MACHINE OPERATOR NOTES: Incidental finding: Per patient, known right ovarian cyst = 5.1 x 3.9 x 4.4 cm. Measured 4.8 cm on 12/03/2021 IMPRESSION: 1. Unable to identify the appendix by ultrasound. Further clinical correlation will be needed for any suspected acute appendicitis. 2. Known right ovarian cyst measuring 5.1 cm. This is in comparison to 5.7 cm on 02/18/2022 and 4.8 cm back on 12/03/2021. Appropriate PROFESSOR OF RELIGIOUS STUDIES surveillance and management recommended.
[2022-02-21 08:08] VITALS: TEMP 97.7
[2022-02-21 08:54] LABS: Appearance,Urine Cloudy (Clear); Bacteria,Urine Few /hpf; Bilirubin,Urine Negative (Negative); Blood,Urine Small (Negative); Color,Urine Yellow; Glucose,Urine (UA) Negative (Negative); Ketones,Urine Negative (Negative); Leukocyte Esterase,Urine Moderate (Negative); Mucus,Urine Rare /hpf; Nitrite,Urine Negative (Negative); PH, Urine 6.5 (5.0-8.0); Protein,Urine Negative (Negative); RBC,Urine 1 /hpf (0-5); Specific Gravity,Urine 1.007 (1.001-1.035); Squamous Epithelial Cell,Urine 5 /hpf (0-4); Urobilinogen,Urine <2.0 mg/dL (<2.0); WBC,Urine 5 /hpf (0-5)
[2022-02-21] MEDS ORDERED: CEPHALEXIN 500 MG CAP PO STA (08:57)
[2022-02-21] MEDS ORDERED: BETAMET ACET-BETAMETH SOD PHOS 6 MG/ML MDV IM SCH (09:45)
== END 2022-02-21 11:30 | disposition home or self-care (01) ==
LOC: EC 06:15
DX: O99.613 Diseases of the digestive system complicating pregnancy, third trimester (principal); N83.201 Unspecified ovarian cyst, right side; Z3A.35 35 weeks gestation of pregnancy
CPT/HCPCS: 99284; 96372; 96374; 96361; 36415; 80053; 83605; 83615; 85025; 81001; 76705; J2270; J0702

== ENCOUNTER 2022-02-22 09:39 | Outpatient (CLI) | payer OTHER ==
[2022-02-22] MEDS ORDERED: BETAMET ACET-BETAMETH SOD PHOS 6 MG/ML MDV IM SCH (10:15)
[2022-02-22 10:39] VITALS: BP 116/74; PULSE 86; RESP 17; TEMP 97.2
== END 2022-02-22 10:30 | disposition home or self-care (01) ==
LOC: FBPOP 09:39
PROVIDERS: ATTEND Obstetrics & Gynecology
DX: O26.893 Other specified pregnancy related conditions, third trimester (principal); Z3A.35 35 weeks gestation of pregnancy; O60.03 Preterm labor without delivery, third trimester
CPT/HCPCS: 59025; 96372; J0702

== ENCOUNTER 2022-02-27 10:00 | Inpatient (IN) | payer OTHER ==
[2022-02-27] MEDS ORDERED: CITRIC ACID-SODIUM CITRATE 15 ML CUP PO ONE (10:27)
[2022-02-27] MEDS ORDERED: TERBUTALINE 1 MG/ML VIAL SQ PRN (10:29)
[2022-02-27] MEDS ORDERED: OXYTOCIN 30 UNITS/500 ML NS 30 UNIT in SALINE 1 500ML.BAG IV SCH ×2 (10:30→17:30)
[2022-02-27] MEDS: LACTATED RINGERS 1,000 ML IV SCH ×2 (10:40→11:44)
[2022-02-27 11:21] LABS: Basophils % (A) 0 %; Eosinophils # (A) 0.1 k/uL (0-0.7); Eosinophils % (A) 1 %; HCT 33.3 % (34.0-46.0); HGB 11.3 gm/dL (11.4-16.0); Hypochromasia Slight; Lymphocytes % (A) 21 %; MCH 29.8 pg (25.0-35.0); MCHC 33.9 g/dL (31.0-37.0); MCV 87.8 fL (80.0-100.0); Mean Platelet Volume 9.7; Monocytes # (A) 0.4 k/uL (0-1.0); Monocytes % (A) 4 %; Neutrophils % (A) 73 %; Platelet Count 269 k/uL (150-450); RDW 13.2 % (11.5-15.5); WBC 9.6 k/uL (3.8-10.6)
[2022-02-27] MEDS ORDERED: ONDANSETRON 4 MG/2 ML VIAL ONE (12:05)
[2022-02-27] MEDS ORDERED: NALBUPHINE 10 MG/ML (1 ML AMP) ONE (12:05)
[2022-02-27] MEDS ORDERED: ePHEDrine 50 MG/ML 1 ML VIAL ONE (12:05)
[2022-02-27] MEDS ORDERED: OXYTOCIN 30 UNITS/500 ML NS BAG IV ONE (12:05)
[2022-02-27] MEDS ORDERED: MORPHINE SULFATE (PF) 0.3 MG/0.3 ML SYR ONE (12:05)
[2022-02-27] MEDS ORDERED: KETOROLAC 15 MG/ML 1 ML VIAL ONE (12:05)
--- NOTE | 2022-02-27 17:24 | P.HPOB ---
History of Present Illness H&P Date: 02/27/22 Chief Complaint: 36 weeks gestation, intractable abdominal pain 31-year-old presents at 36 weeks and 3 days for a primary low transverse with removal of right adnexal cyst. This patient has been in intractable abdominal pain for the last 10 days. I started her on oxycodone 10 mg which was the only thing that was helping a couple days ago. She's been taki ng 2-3 of these for the last 4 days. We did give steroids thinking she may need to be delivered early, about a week ago. Review of Systems All systems: negative Constitutional: Denies chills, Denies fever Eyes: denies blurred vision, denies pain Ears, nose, mouth and throat: Denies headache, Denies sore throat Cardiovascular: Denies chest pain, Denies shortness of breath Respiratory: Denies cough Gastrointestinal: Denies abdominal pain, Denies diarrhea, Denies nausea, Denies vomiting Genitourinary: Denies dysuria, Denies hematuria Musculoskeletal: Denies myalgias Integumentary: Denies pruritus, Denies rash Neurological: Denies numbness, Denies weakness Psychiatric: Denies anxiety, Denies depression Endocrine: Denies fatigue, Denies weight change Past Medical History Additional Past Medical History / Comment(s): kidney stones History of Any Multi-Drug Resistant Organisms: None Reported Past Surgical History: No Surgical Hx Reported Past Anesthesia/Blood Transfusion Reactions: No Reported Reaction Past Psychological History: No Psychological Hx Reported Smoking Status: Former smoker Past Alcohol Use History: None Reported Past Drug Use History: None Reported - Past Family History Father Family Medical History: No Reported History Medications and Allergies Home Medications Medication Instructions Recorded Confirmed Type Vit No.179/Iron/Folic 1 tab PO DAILY 12/12/21 02/27/22 History [ Tablet] oxyCODONE HCL [Oxycodone HCl] 10 mg PO Q6HR PRN 02/22/22 02/27/22 History Allergies Allergy/AdvReac Type Severity Reaction Status Date / Time No Known Allergies Allergy Verified 02/27/22 10:26 Exam Osteopathic Statement: *. No significant issues noted on an osteopathic structural exam other than those noted in the History and Physical/Consult. Vital Signs Temp Pulse Resp BP Pulse Ox 02/27/22 15:03 73 123/72 02/27/22 14:33 78 120/67 02/27/22 14:03 66 121/65 02/27/22 13:48 84 18 124/68 97 02/27/22 13:33 68 16 125/59 98 02/27/22 13:18 74 16 112/59 97 02/27/22 13:00 96.1 F L 80 18 111/62 98 02/27/22 10:25 97.4 F L 78 18 117/74 100 Intake and Output 02/27/22 02/27/22 02/27/22 06:59 14:59 22:59 Output Total 889 300 Balance -889 -300 Output: Urine 250 Output, Quantitative 889 50 Blood Loss Other: Voiding Method Indwelling Catheter Weight 92.533 kg Heart: Regular rate and rhythm Lungs: Clear to auscultation bilaterally Abdomen: Soft, very tender in the right flank and adnexa Extremities: Negative Homans sign Results Result Diagrams: 02/27/22 10:40 Abnormal Lab Results - Last 24 Hours (Table) 02/27/22 Range/Units 10:40 Hgb 11.3 L (11.4-16.0) gm/dL Hct 33.3 L (34.0-46.0) % Assessment and Plan (1) 36 weeks gestation of Narrative/Plan: Status post 2 doses of Celestone Current Visit: Yes Status: Acute Code(s): Z3A.36 - 36 WEEKS GESTATION OF SNOMED Code(s): 63469133 (2) Intractable abdominal pain Current Visit: Yes Status: Acute Code(s): R10.9 - UNSPECIFIED ABDOMINAL PAIN SNOMED Code(s): 77608276 (3) Ovarian cyst Current Visit: No Status: Acute Code(s): N83.209 - UNSPECIFIED OVARIAN CYST, UNSPECIFIED SIDE SNOMED Code(s): 11819573 Plan: 1. Primary low transverse with removal of suspected ovarian cyst.
[2022-02-27] MEDS ORDERED: diphenhydrAMINE 50 MG/ML 1 ML VIAL IVP PRN ×2 (17:29)
[2022-02-27] MEDS ORDERED: ONDANSETRON 4 MG/2 ML VIAL IVP PRN (17:29)
[2022-02-27] MEDS ORDERED: SIMETHICONE 80 MG CHEWABLE PO PRN (17:29)
[2022-02-27] MEDS ORDERED: diphenhydrAMINE 25 MG CAP PO PRN (17:29)
[2022-02-27] MEDS ORDERED: ZOLPIDEM 5 MG TAB PO PRN (17:29)
[2022-02-27] MEDS ORDERED: METOCLOPRAMIDE 5 MG/ML 2 ML VIAL IVP PRN (17:29)
[2022-02-27] MEDS ORDERED: diphenhydrAMINE 50 MG CAP PO PRN (17:29)
[2022-02-27] MEDS ORDERED: LANOLIN CREAM 5 GM TUBE TOPICAL PRN (17:29)
[2022-02-27] MEDS ORDERED: NALOXONE 0.4 MG/ML 1 ML VIAL IV PRN (17:29)
--- NOTE | 2022-02-27 17:29 | P.OP ---
Date of Procedure: 02/27/22 Preoperative Diagnosis: 1. at 36 weeks and 3 days 2. Intractable abdominal pain with use of oxycodone 3. Right ovarian cyst Postoperative Diagnosis: 1. at 36 weeks and 3 days 2. Intractable abdominal pain 3. Right fallopian tube torsion with subsequent necrosis Procedure(s) Performed: Primary low transverse with partial salpingectomy of the right fallopian tube Anesthesia: spinal Surgeon: Angela Walter Monkey Keeper #1: Ángel Mooney Estimated Blood Loss (ml): 420 IV fluids (ml): 1,000 Urine output (ml): 200 Pathology: other (Segment of right fallopian tube) Condition: stable Disposition: floor Operative Findings: Viable female, Apgars 9, 9, weight 5 lbs. 6 oz. Normal uterus and normal ovaries normal left fallopian tube the right fallopian tube looked enlarged edematous and necrotic, evidence of torsion noted. Description of Procedure: Patient was taken to the operating room where spinal anesthesia was found be adequate. She was prepped and draped in normal sterile fashion in dorsal supine position with a leftward tilt. Pfannenstiel skin incision was made the scalpel and carried through to the underlying layer of fascia with the scalpel. Fascia was incised in midline and carried bilaterally with the Salmon scissors. The superior aspect of the fascial incision was grasped with [place] clamps elevated and the underlying rectus muscles dissected off with the Salmon's. Attention was then turned to inferior aspect of same incision which in a similar fashion was grasped tented up and the underlying rectus muscles dissected off with the Salmon's. The rectus muscles were the midline and the peritoneum was identified tented up and entered sharply with the scalpel. The incision was extended superiorly and inferiorly with good visualization of the bladder. The bladder blade was inserted and the vesicouterine peritoneum was incised the [place]zen[place]ums then carried bilaterally and bladder flap created digitally. A low transverse incision was then made on the uterus with the scalpel. This was carried bilaterally and digital manner. 's head delivered atraumatically, nose and mouth bulb suctioned, cord clamped and cut, handed off to waiting nurses. Apgars 9,9, weight 5 lbs. 6 oz. Placenta delivered manually, intact with three-vessel cord. The uterus is exteriorized and cleared of all clots and debris. The uterine incision was closed with 0 Vicryl in a running locked fashion. Second layer of the same sutures used in imbricating fashion to obtain excellent hemostasis. Bladder flap was then reapproximated using 2-0 Vicryl in a running fashion. Both ovaries appeared normal left fallopian tube appears normal. The right fallopian tube had a 4-5 cm cystic edematous area that was torsed distal to the ovary, and necrotic and black. I took a hemostat and clamped off the pedicle. Removed this with the Salmon scissors and then doubly ligated this area. Hemostase was achieved. The uterus was placed back into the abdomen. The peritoneum was reapproximated using 2-0 Vicryl in a running fashion. The muscles were reapproximated using 2-0 Vicryl in interrupted fashion. The fascia was reapproximated using 0 Vicryl in a running fashion. The subcutaneous tissues closed with 3-0 Vicryl running fashion. The skin was closed jerica. Patient tolerated the procedure well, sponge and instrument counts were correct times 2 and she was taken to the recovery room in stable condition.
[2022-02-27] MEDS: ACETAMINOPHEN TAB 500 MG TAB PO SCH (20:36)
[2022-02-27] MEDS: SENNOSIDES-DOCUSATE SODIUM 1 EACH TAB PO SCH (20:36)
[2022-02-28] MEDS: IBUPROFEN 600 MG TAB PO SCH ×4 (01:13→23:15)
[2022-02-28] MEDS: KETOROLAC 15 MG/ML 1 ML VIAL IVP SCH (01:31)
[2022-02-28] MEDS: ACETAMINOPHEN TAB 500 MG TAB PO SCH ×3 (03:01→20:08)
[2022-02-28] MEDS: LACTATED RINGERS 1,000 ML IV SCH (03:05)
[2022-02-28 07:24] LABS: Basophils % (A) 0 %; Eosinophils # (A) 0.1 k/uL (0-0.7); Eosinophils % (A) 1 %; HCT 27.5 % (34.0-46.0); Hypochromasia Slight; Lymphocytes # (A) 1.7 k/uL (1.0-4.8); Lymphocytes % (A) 15 %; MCH 29.5 pg (25.0-35.0); MCHC 33.4 g/dL (31.0-37.0); MCV 88.3 fL (80.0-100.0); Mean Platelet Volume 9.8; Monocytes # (A) 0.4 k/uL (0-1.0); Monocytes % (A) 4 %; Neutrophils # (A) 9.3 k/uL (1.3-7.7); Neutrophils % (A) 80 %; Platelet Count 225 k/uL (150-450); RBC 3.11 m/uL (3.80-5.40); RDW 13.2 % (11.5-15.5); WBC 11.7 k/uL (3.8-10.6)
--- NOTE | 2022-02-28 07:32 | P.PN ---
Progress Note - Text Date: 02/28/2022 Time: 07:12 The patient is status post section Vital signs stable VAS: O-10 Patient has no complaints of pain. The patient incurred some minimal itching yesterday, this itching is now subsiding. Pain meds to be managed by service.
[2022-02-28 07:41] LABS: HGB 9.2 gm/dL (11.4-16.0)
[2022-02-28] MEDS: SENNOSIDES-DOCUSATE SODIUM 1 EACH TAB PO SCH ×2 (09:16→23:34)
--- NOTE | 2022-02-28 13:19 | P.PNOBGPC ---
Subjective - Subjective Principal diagnosis: Status post primary lowtransverse with partial salpingectomy pod1 Interval history: Patient seen and examined. Denies nausea, vomiting, chest pain, shortness of breath or calf pain. She is resting comfortably in bed. Patient reports: Reports appetite normal, Reports voiding normally, Reports pain well controlled, Reports ambulating normally [place]: doing well Objective - Vital Signs Latest vital signs: Vital Signs Temp Pulse Resp BP Pulse Ox 02/28/22 09:00 98.4 F 83 16 126/67 100 02/28/22 04:00 97.8 F 78 16 111/72 02/28/22 00:00 97.6 F 81 16 127/89 02/27/22 20:00 98.0 F 81 16 125/85 02/27/22 16:00 98.4 F 78 18 123/67 98 02/27/22 15:03 73 123/72 02/27/22 14:33 78 120/67 02/27/22 14:03 66 121/65 02/27/22 13:48 84 18 124/68 97 02/27/22 13:33 68 16 125/59 98 Intake and Output 02/27/22 02/28/22 02/28/22 22:59 06:59 14:59 Intake Total 200 Output Total 600 1300 Balance -400 -1300 Intake: Oral 200 Output: Urine 550 1300 Output, Quantitative 50 Blood Loss Other: # Voids 1 1 - Exam Lungs: bilateral: normal Chest: Normal S1, Normal S2 Extremities: Present: normal Abdomen: Present: normal appearance, soft. Absent: distention, tenderness Incision: Present: normal, dry, intact Uterus: Present: normal, firm - Labs Labs: Abnormal Lab Results - Last 24 Hours (Table) 02/28/22 Range/Units 06:58 WBC 11.7 H (3.8-10.6) k/uL RBC 3.11 L (3.80-5.40) m/uL Hgb 9.2 L D (11.4-16.0) gm/dL Hct 27.5 L (34.0-46.0) % Neutrophils # 9.3 H (1.3-7.7) k/uL Assessment and Plan (1) 36 weeks gestation of Current Visit: Yes Status: Resolved Code(s): Z3A.36 - 36 WEEKS GESTATION OF SNOMED Code(s): 24509805 (2) Intractable abdominal pain Current Visit: Yes Status: Resolved Code(s): R10.9 - UNSPECIFIED ABDOMINAL PAIN SNOMED Code(s): 18552857 (3) Ovarian cyst Current Visit: No Status: Resolved Code(s): N83.209 - UNSPECIFIED OVARIAN CYST, UNSPECIFIED SIDE SNOMED Code(s): 05222138 (4) Status post primary low transverse section Current Visit: Yes Status: Acute Code(s): Z98.891 - HISTORY OF UTERINE SCAR FROM PREVIOUS SURGERY SNOMED Code(s): 813605182 Plan: 1. Increase ambulation 2. Continue pain control
[2022-03-01] MEDS: SENNOSIDES-DOCUSATE SODIUM 1 EACH TAB PO SCH ×2 (08:18→22:58)
[2022-03-01] MEDS: IBUPROFEN 600 MG TAB PO SCH ×4 (08:18→23:09)
--- NOTE | 2022-03-01 09:44 | P.PNOBGPC ---
Subjective - Subjective Principal diagnosis: Status post primary low transverse postop day 2 Interval history: Patient seen and examined. Denies nausea, vomiting, chest pain, shortness of breath or calf pain. Patient reports: Reports appetite normal, Reports voiding normally, Reports pain well controlled, Reports ambulating normally : doing well Objective - Vital Signs Latest vital signs: Vital Signs Temp Pulse Resp BP Pulse Ox 03/01/22 08:00 98.5 F 72 16 134/68 03/01/22 00:00 98.7 F 87 16 112/68 99 02/28/22 15:58 98.7 F 89 16 114/64 99 02/28/22 12:00 98.0 F 80 16 120/66 Intake and Output 02/28/22 03/01/22 03/01/22 22:59 06:59 14:59 Intake Total 200 200 Balance 200 200 Intake: Oral 200 200 Other: Voiding Method Indwelling Catheter # Voids 1 1 - Exam Lungs: bilateral: normal Chest: Normal S1, Normal S2 Extremities: Present: normal Abdomen: Present: normal appearance, soft. Absent: distention, tenderness Incision: Present: normal, dry, intact Uterus: Present: normal, firm Assessment and Plan (1) 36 weeks gestation of Current Visit: Yes Status: Resolved Code(s): Z3A.36 - 36 WEEKS GESTATION OF SNOMED Code(s): 86384987 (2) Intractable abdominal pain Current Visit: Yes Status: Resolved Code(s): R10.9 - UNSPECIFIED ABDOMINAL PAIN SNOMED Code(s): 07390823 (3) Ovarian cyst Current Visit: No Status: Resolved Code(s): N83.209 - UNSPECIFIED OVARIAN CYST, UNSPECIFIED SIDE SNOMED Code(s): 08540200 (4) Status post primary low transverse section Current Visit: Yes Status: Acute Code(s): Z98.891 - HISTORY OF UTERINE SCAR FROM PREVIOUS SURGERY SNOMED Code(s): 902867392 Plan: 1. Increase ambulation and continue pain control
[2022-03-01] MEDS: ACETAMINOPHEN TAB 500 MG TAB PO SCH ×4 (09:47→23:09)
[2022-03-01] MEDS ORDERED: CALCIUM CARBONATE 500 MG CHEWABLE PO PRN (14:16)
[2022-03-01] MEDS: LACTATED RINGERS 1,000 ML IV SCH ×2 (23:03→23:13)
[2022-03-01] MEDS: KETOROLAC 15 MG/ML 1 ML VIAL IVP SCH ×4 (23:07→23:21)
[2022-03-02] MEDS: IBUPROFEN 600 MG TAB PO SCH ×4 (00:22→15:21)
[2022-03-02] MEDS: ACETAMINOPHEN TAB 500 MG TAB PO SCH ×3 (07:44→16:53)
[2022-03-02] MEDS: SENNOSIDES-DOCUSATE SODIUM 1 EACH TAB PO SCH (08:00)
--- NOTE | 2022-03-02 08:42 | P.DS ---
Providers Date of admission: 02/27/22 10:00 Expected date of discharge: 03/02/22 Attending physician: Angela Walter Primary care physician: Stated None Hospital Course: This is a 31-year-old female 3 para 0 at 36-3/7 weeks who presented for scheduled primary section due to intractable pain. Please see history and physical for details of patient's admission. She underwent a primary low transverse section with right ovarian cystectomy and right partial salpingectomy on 02/27/2022 with diagnosis of a torsed fallopian tube. She delivered a viable female infant with scores of 9 at 1 minute and 9 at 5 minutes and infant weight of 5 lbs. 6 oz. Her postoperative course has been uncomplicated. Her pain is fairly well controlled. She is passing flatus and bowel movements. Vital signs are stable. Abdomen is soft with positive bowel sounds 4. Incision is clean dry and intact with jerica in place. Extremities show negative Homans. Impression is status post primary low transverse section postoperative day #3. Plan is to discharge home later today is lungs baby is able to go. Routine postoperative and instructions are given. A prescription for oxycodone has are given sent in by Dr. Walter. She also will be given a prescription for ibuprofen. She is advised to follow up in the office in approximately one week for a postoperative check and in 6 weeks for check. She is advised to call the office if she has any further questions or concerns prior to her appointment time. Procedures: Primary low transverse section on 02/27/2022 Patient Condition at Discharge: Stable Plan - Discharge Summary New Discharge Prescriptions: New Ibuprofen [Motrin] 600 mg PO Q6H #30 tab oxyCODONE HCL [OxyIR] 5 mg PO Q4HR PRN #18 tab PRN Reason: Pain Scale 4 - 6 Discontinued oxyCODONE HCL [Oxycodone HCl] 10 mg PO Q6HR PRN PRN Reason: Pain No Action Vit No.179/Iron/Folic [ Tablet] 1 tab PO DAILY Discharge Medication List Vit No.179/Iron/Folic [ Tablet] 1 tab PO DAILY 12/12/21 [History] Ibuprofen [Motrin] 600 mg PO Q6H #30 tab 03/01/22 [Rx] oxyCODONE HCL [OxyIR] 5 mg PO Q4HR PRN #18 tab 03/01/22 [Rx] Follow up Appointment(s)/Referral(s): Angela Walter DO [Doctor of Osteopathic Medicine] - 04/15/22 11:45 am (Post Op appointment 03-14-22 at 1:45) Activity/Diet/Wound Care/Special Instructions: Instructions 1. Do not begin any exercise program for 3 weeks. 2. Do not resume sexual relations for 3 weeks or longer if uncomfortable. 3. You may take tub baths or showers at any time. 4. You may use tampons if desired after 3 weeks. 5. Keep the area of episiotomy (stitches) clean and dry. 6. If you are not nursing, wear a good fitting, supportive bra during the day and limit fluid intake for at least 1 week to prevent breast engorgement. 7. Call the office, [phone], within the next week to make appointment for your 6 week checkup if it has not already been made. 8. Report any of the following occurrences to the doctor promptly: a. Heavy, excessive bleeding b. Chills, fever c. Burning or frequency of urination d. Pain or redness and breasts if nursing e. Increasing pain or swelling in episiotomy (stitches). In addition to the above instructions, the following additional should be followed: 1. No heavy lifting or straining (exercising) until after 6 week checkup. 2. Keep abdominal incision clean and dry: You may wear a dressing if more comfortable. 3. Make office appointment for 10 days after going home or as instructed by her doctor. Discharge Disposition: HOME SELF-CARE
[2022-03-03] MEDS: IBUPROFEN 600 MG TAB PO SCH (00:05)
[2022-03-03] MEDS: SENNOSIDES-DOCUSATE SODIUM 1 EACH TAB PO SCH ×2 (00:07→08:22)
[2022-03-03] MEDS: ACETAMINOPHEN TAB 500 MG TAB PO SCH ×3 (03:40→06:55)
[2022-03-03 03:41] VITALS: PULSE 69; RESP 16
[2022-03-03 13:22] VITALS: BP 114/76; TEMP 98.1
== END 2022-03-03 15:55 | disposition home or self-care (01) | DRG 783 ==
LOC: 4FBP 10:00
PROVIDERS: ADMIT Obstetrics & Gynecology; ATTEND Obstetrics & Gynecology
PROC: 0UB50ZZ Excision of Right Fallopian Tube, Open Approach (ICD-10-PCS; 2022-02-27)
PROC: 0UB00ZZ Excision of Right Ovary, Open Approach (ICD-10-PCS; 2022-02-27)
PROC: 10D00Z1 Extraction of Products of Conception, Low, Open Approach (ICD-10-PCS; principal; 2022-02-27 12:00)
DX: O34.83 Maternal care for other abnormalities of pelvic organs, third trimester (principal); O60.14X0 Preterm labor third trimester with preterm delivery third trimester, not applicable or unspecified; N83.201 Unspecified ovarian cyst, right side; O99.73 Diseases of the skin and subcutaneous tissue complicating the puerperium; L29.9 Pruritus, unspecified; Z37.0 Single live birth; Z3A.36 36 weeks gestation of pregnancy; Z87.442 Personal history of urinary calculi; Z87.891 Personal history of nicotine dependence
CPT/HCPCS: 85025; 86850; 86900; 86901